=== PATIENT | female | born 2000 | race Caucasian/White ===

== ENCOUNTER 2020-02-18 20:36 | Emergency (ER) | payer SELFPAY ==
[~2020-02-18] VITALS: Ht 162.6 cm; Wt 63.6 kg
[2020-02-18 20:44] VITALS: BP 127/83; PULSE 67; TEMP 97.7
[2020-02-18] MEDS ORDERED: BIRTH CONTROL (20:47)
[2020-02-18 20:58] LABS: COLLECTION METHOD CLEAN CATCH
[2020-02-18 21:39] LABS: PH 7 (5-8); SQUAMOUS EPITHELIAL 0-2 /hpf; URINE APPEARANCE Hazy; URINE BACTERIA None Seen /hpf; URINE BILIRUBIN Negative (NEGATIVE); URINE BLOOD 2+ (NEGATIVE); URINE COLOR Straw; URINE GLUCOSE Negative (NEGATIVE); URINE KETONE Negative (NEGATIVE); URINE LEUKOCYTE ESTERASE 3+ (NEGATIVE); URINE NITRATE Negative (NEGATIVE); URINE PROTEIN(semi-quant) Negative (NEGATIVE); URINE UROBILINOGEN Negative (NEGATIVE)
[2020-02-18] MEDS ORDERED: OMNICEF 300MG300 MG PO (22:16)
== END 2020-02-18 22:39 | disposition home or self-care (01) ==
LOC: COL.ER 20:36
PROVIDERS: Emergency Medicine
DX: N39.0 Urinary tract infection, site not specified (principal); Z86.73 Personal history of transient ischemic attack (TIA), and cerebral infarction without residual deficits